=== PATIENT | female | born 1965 | race Caucasian/White ===

== ENCOUNTER 2024-06-02 08:37 | Outpatient (AMB) | payer MEDICAID, SELFPAY ==
[2024-06-02 09:18] VITALS: BP 112/81; PULSE 79; RESP 18; TEMP 36; O2SAT 100; BMI 27.4
--- NOTE | 2024-06-02 09:18 | ORTHONT_ITS ---
Vital signs 06/02/24 09:18 Height 1.57 m Height Method Stated Weight 68.067 kg Weight Measurement Method Standing Scale BMI 27.4 BP 112/81 Blood Pressure Source Automatic Cuff Blood Pressure Location Right Upper Arm Position Sitting Respiration 18 Pulse 79 Pulse Source Monitor Temp 96.8 F Temp Source Temporal Artery Scan Pulse Oximetry (%) 100 Oxygen Delivery Method Room Air Med/Allergies Allergies & Medications Allergies No Known Drug Allergies Allergy (Verified 06/02/24 09:19) Medication Reconciliation No Known Home Medications 06/02/24 [History Confirmed 06/02/24] Subjective Visit Visit for: new patient and knee Immunization / Flu Flu Vaccine in the Last 12 Months: No Flu Vaccine Exclusion Criteria: No Exclusion Criteria History of Present Illness Chief complaint: LEFT KNEE PAIN Denise is a 58-year-old female with left knee pain and right knee pain. The pain is of equal severity and takes turns. She was found to have a medial meniscal tear on MRI and was subsequently sent here. She reports the knee the x-ray of the MRI on is actually improved and the other side is worse now. She does not have weightbearing x-rays of both knees. She has not had any injections or formal physical therapy Personal History Occupation: UNEMOPLYED Red flag PMH: none Pain Pain level (0-10): 9 Pain duration: CONSTANT Pain location: inside (medial), outside (lateral) and anterior Pain quality: sharp, dull and aching Pain timing: increases with activity Associated signs & symptoms: none Ambulatory data Ambulatory device: none Treatments Improvement with previous injections: No Number of Physical Therapy sessions: 2 Improvement with PT: No Improvement with NSAIDS: no Review of Systems Review of Systems: All systems negative unless otherwise noted in HPI. Exam Exam Patient is in no acute distress and is cooperative with the examination today. Breathing is nonlabored. In no respiratory distress. Bilateral extremities were evaluated and demonstrates sensation intact to light touch. Palpable pedal pulses are present. No significant edema is present. Bilateral hips were examined. The patient has no pain with log roll of the hips. Internal rotation to 30 degrees and external rotation to 30 degrees is painless. Negative FADIR. The left knee was examined. The left knee is in [varus] alignment. Range of motion from [0-115] degrees. Knee is stable to varus and valgus as well as AP translation with <5mm. Patient has a [negative] McMurrays. There is [no] pain with patellofemoral compression and [no] crepitus noted. The knee is [tender] to palpation [medially]. The right knee was also examined. The right knee is in [varus] alignment. Range of motion from [0-120] degrees. Knee is stable to varus and valgus as well as AP translation with <5mm. Patient has a [negative] McMurrays. There is [no] pain with patellofemoral compression and [no] crepitus noted. The knee is [tender] to palpation [medially]. An MRI from 02/10/2024 was reviewed of the left knee. This demonstrates a posterior horn the medial meniscus tear Assessment and Plan Problem List (1) Pain in left knee: Status: Acute Plan: Patient is a 58-year-old female with left knee pain and left knee arthritis. We discussed nonoperative and operative options. I would like to get weightbearing x-rays of both knees as it is actually her contralateral knee for the MRI that is already her more. She likely has arthritis based on examination. We discussed different treatment options. 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
== END 2024-06-02 09:38 | disposition home or self-care (01) ==
PROVIDERS: PCP Obstetrics & Gynecology; Referring Provider Obstetrics & Gynecology; Supervising Provider Orthopaedic Surgery Adult Reconstructive Orthopaedic Surgery; Visit Provider Orthopaedic Surgery Adult Reconstructive Orthopaedic Surgery
DX: M25.562 Pain in left knee (principal); M17.12 Unilateral primary osteoarthritis, left knee
CPT/HCPCS: 99203; G0463

== ENCOUNTER → 2024-06-02 | Outpatient (CLI) | payer MEDICAID, SELFPAY ==
--- NOTE | 2024-06-02 09:55 | XR_ITS ---
Examination: Bilateral knees 2 views Right lateral knee left lateral knee 2 views Bilateral axial knees single view TECHNIQUE: Bilateral AP knees standing single view, bilateral PA knees standing single view 30 degrees flexion Staining right lateral knee left lateral knee 2 views Bilateral axial knees single view total 5 views Exam date and time: June 02, 2024 1146 hours INDICATIONS: Bilateral knee pain beginning 4 years ago. FINDINGS: Moderate osteopenia Moderate bilateral narrowing medial joint spaces Bilateral mild to moderate osteoarthritis patellofemoral joints No fracture or dislocation involving either knee IMPRESSION: Bilateral moderate narrowing medial joint spaces Bilateral mild to moderate osteoarthritis patellofemoral joints
== END | disposition home or self-care (01) ==
PROVIDERS: PCP Student in an Organized Health Care Education/Training Program; Referring Provider Orthopaedic Surgery Adult Reconstructive Orthopaedic Surgery; Visit Provider Orthopaedic Surgery Adult Reconstructive Orthopaedic Surgery
DX: M17.0 Bilateral primary osteoarthritis of knee (principal); M25.862 Other specified joint disorders, left knee; M25.861 Other specified joint disorders, right knee
CPT/HCPCS: 73564

== ENCOUNTER 2024-06-15 09:42 | Outpatient (AMB) | payer MEDICAID, SELFPAY ==
--- NOTE | 2024-06-15 10:18 | PD.ORTHCLVIS ---
Vital signs 06/15/24 10:19 Height 1.57 m Height Method Stated Weight 67.188 kg Weight Measurement Method Standing Scale BMI 27.2 BP 111/74 Blood Pressure Source Automatic Cuff Blood Pressure Location Right Upper Arm Position Sitting Respiration 18 Pulse 64 Pulse Source Monitor Temp 96.9 F Temp Source Temporal Artery Scan Pulse Oximetry (%) 98 Oxygen Delivery Method Room Air Med/Allergies Allergies & Medications Allergies No Known Drug Allergies Allergy (Verified 06/15/24 10:20) Medication Reconciliation meloxicam 7.5 mg tablet 7.5 mg PO QDAY #45 tabs 06/15/24 [Rx] Exam Exam Patient is in no acute distress and is cooperative with the examination today. Breathing is nonlabored. In no respiratory distress. Bilateral extremities were evaluated and demonstrates sensation intact to light touch. Palpable pedal pulses are present. No significant edema is present. Bilateral hips were examined. The patient has no pain with log roll of the hips. Internal rotation to 30 degrees and external rotation to 30 degrees is painless. Negative FADIR. The left knee was examined. The left knee is in [varus] alignment. Range of motion from [0-115] degrees. Knee is stable to varus and valgus as well as AP translation with <5mm. Patient has a [negative] McMurrays. There is [no] pain with patellofemoral compression and [no] crepitus noted. The knee is [tender] to palpation [medially]. The right knee was also examined. The right knee is in [varus] alignment. Range of motion from [0-120] degrees. Knee is stable to varus and valgus as well as AP translation with <5mm. Patient has a [negative] McMurrays. There is [no] pain with patellofemoral compression and [no] crepitus noted. The knee is [tender] to palpation [medially]. An MRI from 02/10/2024 was reviewed of the left knee. This demonstrates a posterior horn the medial meniscus tear Assessment and Plan Problem List (1) Pain in left knee: Status: Acute Plan: Patient is a 58-year-old female with left knee pain and left knee arthritis. WWbebeto discussed this is typically treated nonoperatively with injections and conservative treatment. Will start with meloxicam. She wants to hold off on injections for now. The x-rays do not show significant severity of arthritis (2) Arthritis of left knee: Status: Acute Office Procedures GNS Level of Care Nursing/Assessment Patient Status: Established Patient Nursing Assessment/Reassesment: Medication Reconciliation, Update PMH in EMR and Vital Signs Coordination of Care: Complex Care and Chronic Disease 1-5, Education Complex Pt/Fam, Consent,records obtained, informed consent, Results/Orders obtained and Staff clarify orders Special Needs: Language special needs Established Patient Charge Established Patient Point Assignment: 95 Established Patient Point Charge: EP Level 3 (80-115) MA Intake Visit Data Collection New Patient or Established: Established Patient (seen at [facility] within 3 years) Reason for Visit:: F/U XRAYS Seen by Clinical Staff ONLY (RN/MA): No Verbal consent obtained for Telemed visit?: No Airport Tower Controller Required: Yes PCP or OBGYN visit in last 3 months: Yes Hx Now: No Do You Feel Safe at Home: Yes Authorities Contacted: N/A Questionairres Past Medical History Past Medical History Have you ever been diagnosed with any of the following: Respiratory Problems Smoking: No Smoking Exposure: No Subjective Visit Visit for: follow up visit, knee and x-rays Immunization / Flu Flu Vaccine in the Last 12 Months: Yes Flu Vaccine Exclusion Criteria: Already Received History of Present Illness Chief complaint: F/U XRAYS We reviewed her x-rays today. She has not tried any anti-inflammatories. She reports a lot of elbow and shoulder problems. We will thus start with an oral anti-inflammatory. She wants to hold off on injections as she is very scared of getting the needles put into her body Pain Pain level (0-10): 6 Pain duration: ALL DAY Pain location: inside (medial), outside (lateral), anterior and posterior Pain quality: sharp, dull and aching Pain timing: increases with activity Ambulatory data Ambulatory device: none Treatments Improvement with previous injections: No Improvement with PT: No Improvement with NSAIDS: n/a Review of Systems Review of Systems: All systems negative unless otherwise noted in HPI.
[2024-06-15 10:19] VITALS: BP 111/74; PULSE 64; RESP 18; TEMP 36.1; O2SAT 98; BMI 27.2
== END 2024-06-15 10:44 | disposition home or self-care (01) ==
LOC: HODSRG 09:42
PROVIDERS: PCP Obstetrics & Gynecology; Referring Provider Obstetrics & Gynecology; Supervising Provider Orthopaedic Surgery Adult Reconstructive Orthopaedic Surgery; Visit Provider Orthopaedic Surgery Adult Reconstructive Orthopaedic Surgery
DX: M25.562 Pain in left knee (principal); M17.12 Unilateral primary osteoarthritis, left knee
CPT/HCPCS: 99213; G0463